=== PATIENT | male | born 1985 | race Caucasian/White ===

== ENCOUNTER 2019-07-08 00:47 | Emergency (ER) | payer OTHER, BC ==
[~2019-07-08] VITALS: Ht 177.8 cm; Wt 99.8 kg
[2019-07-09 04:07] LABS: HIV SCREEN 4TH GENERATION WRFX Non Reactive (Non Reactive)
[2019-07-09 05:09] LABS: HCV ANTIBODY 0.1 (0.0-0.9)
== END 2019-07-08 01:56 | disposition home or self-care (01) ==
LOC: ER 00:47
DX: S61.231A Puncture wound without foreign body of left index finger without damage to nail, initial encounter (principal); W46.0XXA Contact with hypodermic needle, initial encounter; Y99.0 Civilian activity done for income or pay; Z91.013 Allergy to seafood
CPT/HCPCS: 84460; 86317; 86803; 87389; 99282